=== PATIENT | male | born 1950 | race Caucasian/White ===

== ENCOUNTER 2021-10-05 17:55 | Emergency (ER) | payer OTHER | END 2021-10-05 23:22 | LOC: ER 17:55 | PROVIDERS: Emergency Medicine | DX: R45.851 Suicidal ideations (principal); Z20.822 Contact with and (suspected) exposure to COVID-19; R45.1 Restlessness and agitation; E11.9 Type 2 diabetes mellitus without complications; E78.00 Pure hypercholesterolemia, unspecified; I10 Essential (primary) hypertension; F32.9 Major depressive disorder, single episode, unspecified; Z87.442 Personal history of urinary calculi; Z90.49 Acquired absence of other specified parts of digestive tract; Z90.89 Acquired absence of other organs; Z98.890 Other specified postprocedural states ==